=== PATIENT | male | born 1965 | race Caucasian/White ===

== ENCOUNTER → 2016-12-25 | Outpatient (CLI) | payer MEDICAID ==
[~2016-12-25] MED LIST: BACTRIM DS 8001 TA1 PO; BACTROBAN2% TP; CEPHALEXIN500 MG PO; PERCOCET1 TAB PO
[2016-12-25 09:41] LABS: LYMPH # 1.7 K/mm3 (0.7-4.5); LYMPH % 36.4 % (10-50)
[2016-12-25 09:53] LABS: HEMOGLOBIN 13.8 g/dL (14.1-18.0)
[2016-12-25 10:58] LABS: BUN 8 mg/dL (7-18)
[2016-12-25 10:59] LABS: GFR (ESTIMATED) 79 ML/MIN (>60)
== END ==
LOC: LAB 09:29
PROVIDERS: Emergency Medicine
DX: R53.83 Other fatigue (principal)